=== PATIENT | female | born 1980 | race Two or more races ===

== ENCOUNTER 2021-10-12 15:47 | Emergency (ER) | payer OTHER, SELFPAY ==
[2021-10-12 16:06] VITALS: BP 121/88; PULSE 72; RESP 16; TEMP 37; O2SAT 100
--- NOTE | 2021-10-12 17:38 | ED.EYEPROB ---
HPI - Eye Problem General Chief complaint: Eye Problems Stated complaint: Right Eye Problem Time Seen by Provider: 10/12/21 17:03 Source: patient Mode of arrival: ambulatory Limitations: no limitations History of Present Illness HPI Narrative: 41-year-old female presents today with complaints of redness and right eye pain that started yesterday. Patient is a contact wearer. Patient states she felt like she had something in her eyes took her contacts out, has flushed her eyes, with no improvement. Patient right eye swollen. Sensitivity to light. Patient does endorse blurred vision and pain to the right eye. Related Data Allergies Allergy/AdvReac Type Severity Reaction Status Date / Time No Known Allergies Allergy Verified 10/12/21 17:33 Review of Systems Review of Systems: CONSTITUTIONAL: Denies fever, chills, or sweats. EYES: Denies visual changes, redness, or discharge. ENT: Right eye pain, right eye redness. Denies rhinorrhea, congestion, sore throat, or otalgia. CARDIOVASCULAR: Denies chest pain, palpitations, or edema. RESPIRATORY: Denies cough or dyspnea. GASTROINTESTINAL: Denies abdominal pain, nausea, vomiting, or diarrhea. GENITOURINARY: Denies dysuria or hematuria. SKIN: Denies rash or itching. MUSCULOSKELETAL: Denies back pain, joint pain, or myalgia. NEUROLOGIC: Denies headache, numbness, dizziness, or weakness. PSYCHIATRIC: Denies anxiety or depression. Exam Narrative: CONSTITUTIONAL: Denies fever, chills, or sweats. EYES: Denies visual changes, redness, or discharge. ENT: Eyes see below. Denies rhinorrhea, congestion, sore throat, or otalgia. CARDIOVASCULAR: Denies chest pain, palpitations, or edema. RESPIRATORY: Denies cough or dyspnea. GASTROINTESTINAL: Denies abdominal pain, nausea, vomiting, or diarrhea. GENITOURINARY: Denies dysuria or hematuria. SKIN: Denies rash or itching. MUSCULOSKELETAL: Denies back pain, joint pain, or myalgia. NEUROLOGIC: Denies headache, numbness, dizziness, or weakness. PSYCHIATRIC: Denies anxiety or depression. Eyes: Periorbital: periorbital findings abnormal right Eyelids: eyelid abnormality right upper eyelid swelling and right lower eyelid swelling Conjunctivae: conjunctivae normal Sclera: scleral abnormality right scleral injection diffuse Cornea: corneas abnormal on the right fluorescein used and abrasion linear (small 2mm linear abrasion to 12 o'clock.) and fluorescein used Pupils: Equal, round and reactive pupils present EOM: EOMs intact bilaterally Direct Ophthalmoscopy: normal light reflex Course Course Emergency Course: 41-year-old female with small corneal abrasion to the right cornea at 12:00. [place]. Patient will be discharged with antibiotic drops with strict instructions to follow-up with ophthalmology. Patient also instructed that she cannot wear contacts until ophthalmology has cleared it. 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 Stressed to patient the importance of following up to make sure abrasion is healing appropriately. Patient instructed to return with any new or worsening symptoms. Vital Signs Vital signs: Vital Signs Temperature 37.0 C 10/12/21 16:06 Pulse Rate 72 10/12/21 16:06 Respiratory Rate 16 10/12/21 16:06 Blood Pressure 121/88 10/12/21 16:06 Pulse Oximetry 100 10/12/21 16:06 Temperature 37.0 C 10/12/21 16:06 Pulse Rate 72 10/12/21 16:06 Respiratory Rate 16 10/12/21 16:06 Blood Pressure 121/88 10/12/21 16:06 Pulse Oximetry 100 10/12/21 16:06 Discharge Plan Discharge Clinical Impression: Corneal abrasion Qualifiers: Encounter type: initial encounter Laterality: right Qualified Code(s): S05.01XA - Injury of conjunctiva and corneal abrasion without foreign body, right eye, initial encounter Patient Disposition: Home, Self-Care Condition: Stable Instructions: Antibiotic Form, Corneal Abrasion (DC) Additional Instruc
== END 2021-10-12 18:31 | disposition home or self-care (01) ==
LOC: ANHED 18:21
PROVIDERS: Emergency Provider Nurse Practitioner Family
DX: S05.01XA Injury of conjunctiva and corneal abrasion without foreign body, right eye, initial encounter (principal); X58.XXXA Exposure to other specified factors, initial encounter
CPT/HCPCS: 99283; A9270